=== PATIENT | female | born 1965 | race Caucasian/White ===

== ENCOUNTER 2016-12-31 22:52 | Emergency (ER) | payer MEDICAID ==
[~2016-12-31] VITALS: Ht 162.6 cm; Wt 72.0 kg
[2016-12-31 23:36] VITALS: BP 141/79
== END 2016-12-31 23:39 | disposition home or self-care (01) ==
LOC: ED 23:36
DX: M54.2 Cervicalgia (principal); Z76.0 Encounter for issue of repeat prescription; Z98.890 Other specified postprocedural states
CPT/HCPCS: 99283